=== PATIENT | female | born 1980 | race Caucasian/White ===

== ENCOUNTER 2016-09-15 15:29 | Emergency (ER) | payer OTHER ==
[~2016-09-15] VITALS: Ht 177.8 cm; Wt 99.2 kg
[~2016-09-15 15:29] MED LIST: HYDR-3240 PO; LEVO750T6 PO
[2016-09-15] MEDS ORDERED: SODIUM CHLORIDE 0.9% 1,000 ML IV ONE (17:20)
[2016-09-15] MEDS ORDERED: SODIUM CHLORIDE FLUSH 10ML SYR IVF ONE (17:30)
[2016-09-15] MEDS ORDERED: KETOROLAC 30 MG/1 ML IVPush ONE (17:30)
[2016-09-15] MEDS ORDERED: SODIUM CHLORIDE 0.9% 1,000ML IVBOLUS ONE (17:30)
[2016-09-15] MEDS ORDERED: ONDANSETRON 2MG/ML, 2ML IVPush ONE (17:30)
[2016-09-15 17:46] LABS: ASPARTATE AMINO TRANSFERASE 16 U/L (15-37); BLOOD UREA NITROGEN 8 mg/dL (7-18)
[2016-09-15] MEDS ORDERED: KETOROLAC 30 MG/1 ML ONE (17:50)
[2016-09-15] MEDS ORDERED: ONDANSETRON 2MG/ML, 2ML ONE (17:50)
[2016-09-15 17:51] LABS: IS PT STATUS REG ER OR PRE ER? YES
[2016-09-15] MEDS ORDERED: LEVOFLOXACIN/PMX 750MG/150ML 150 ML IV ONE (19:30)
[2016-09-15] MEDS ORDERED: LEVOFLOXACIN/PMX 750MG/150ML 150 ML ONE (19:36)
[2016-09-15 21:37] VITALS: BP 117/68
== END 2016-09-15 21:40 | disposition home or self-care (01) ==
LOC: ED 17:08
DX: J12.9 Viral pneumonia, unspecified (principal); R07.89 Other chest pain
CPT/HCPCS: 36415; 71020; 80053; 83880; 84484; 84703; 85025; 93005; 96361; 96365; 96366; 96375; 99285; J1885; J1956; J2405; J7030

== ENCOUNTER → 2016-09-23 | Outpatient (CLI) | payer OTHER | END | disposition home or self-care (01) | LOC: CVU 06:56 | PROVIDERS: ATTEND Internal Medicine Cardiovascular Disease | DX: I08.1 Rheumatic disorders of both mitral and tricuspid valves (principal); I37.1 Nonrheumatic pulmonary valve insufficiency; Z87.01 Personal history of pneumonia (recurrent) | CPT/HCPCS: 93306 ==

== ENCOUNTER → 2016-11-28 | Outpatient (CLI) | payer OTHER ==
[~2016-11-28] MED LIST changes: +OMNIPAQUE 350 MG/ML, 75ML BOTTLE ONE
== END | disposition home or self-care (01) ==
LOC: CFH 11:50
PROVIDERS: ATTEND Internal Medicine Critical Care Medicine
DX: J90 Pleural effusion, not elsewhere classified (principal); K80.20 Calculus of gallbladder without cholecystitis without obstruction; D73.89 Other diseases of spleen
CPT/HCPCS: 71260; Q9967

== ENCOUNTER → 2017-04-21 | Outpatient (CLI) | payer OTHER ==
[~2017-04-21] MED LIST changes: -OMNIPAQUE 350 MG/ML, 75ML BOTTLE ONE
== END | disposition home or self-care (01) ==
LOC: CVU 07:27
PROVIDERS: ATTEND Internal Medicine Cardiovascular Disease
DX: R07.9 Chest pain, unspecified (principal)
CPT/HCPCS: 93306

== ENCOUNTER 2019-04-15 18:55 | Emergency (ER) ==
[~2019-04-15] VITALS: Ht 167.6 cm; Wt 84.0 kg
--- NOTE | 2019-04-15 19:40 | NUR ---
PT TO US ON MARIA L, PT AWAKE AND ALERT, ERIC
--- NOTE | 2019-04-15 19:59 | NUR ---
PT BACK TO ROOM
[2019-04-15 20:06] VITALS: BP 123/65
--- NOTE | 2019-04-15 21:48 | NUR ---
Patient given discharge instructions and they have confirmed that they understand the instructions. Patient ambulatory with steady gait.
== END 2019-04-15 21:49 ==
LOC: ED 21:15
DX: M25.562 Pain in left knee (principal); G89.29 Other chronic pain; M79.662 Pain in left lower leg
CPT/HCPCS: 99284